=== PATIENT | female | born 1980 | race Caucasian/White ===

== ENCOUNTER → 2021-01-08 09:14 | Outpatient (BNVA) | payer SELFPAY | PROVIDERS: Visit Provider Nurse Practitioner Family | DX: Z13.89 Encounter for screening for other disorder (principal) ==

== ENCOUNTER → 2021-05-23 11:07 | Outpatient (BNVA) | payer BC, SELFPAY | PROVIDERS: Visit Provider Internal Medicine Cardiovascular Disease | DX: R55 Syncope and collapse (principal); R00.1 Bradycardia, unspecified; R00.2 Palpitations | CPT/HCPCS: 93005 ==

== ENCOUNTER → 2021-07-09 10:18 | Outpatient (REF) | payer BC, SELFPAY ==
--- NOTE | 2021-07-09 10:25 | CA_ITS ---
Acquisition Time: 2021-07-09 10:30:08 Total Exercise Time: 00:12:52 Test Indications: ABN EKG Medications: SEE CHART Protocol: KENNY Max HR: 155 BPM 85% of Pred: 181 BPM Max BP: 184/070 mmHG Max Work Load: 15.0 METS Exercise stress test with exercise 12 min 52 sec of Kenny protocol, without anginal symptoms, with normotensive response to exercise, with gradual chronotropic response to exercise achieving 85% after 12 min 45 sec of exercise, without EKG changes meeting criteria for ischemia. In recovery, heart rate returned back to baseline by 5 min recovery. Test reviewed with Dr Swain. Referred By: Marvin Swain Overread By: DMITRIY TORRES
--- NOTE | 2021-07-09 10:25 | HM_ITS ---
Conclusion: 1. Patient was monitored for total period of 4 days and 9 hours 2. Baseline rhythm is normal sinus rhythm with average heart of 55 beats per minute in bradycardia. Frequent sinus bradycardia noted with heart rate below 60 beats per minute 45% of the time. Lowest heart rate of 34 beats per minute. No significant pauses noted. Peak heart rate 143 beats per min with good chronotropic competence 3. Total of 68 PACs noted accounting for 0.02% of total PACs accounting for very rare PACs 4. No patient reported symptoms MTDD
== END ==
LOC: HO.CARD 10:18
PROVIDERS: Visit Provider Internal Medicine Cardiovascular Disease
DX: R00.1 Bradycardia, unspecified (principal)
CPT/HCPCS: 93017; 93242